=== PATIENT | male | born 1955 | race Asian ===

== ENCOUNTER 2018-07-09 16:03 | Inpatient (IN) | payer BC, MEDICAID ==
[~2018-07-09] VITALS: Ht 176.5 cm; Wt 83.8 kg
[~2018-07-09 16:03] MED LIST: ARIP2TAB2 PO; BUPR-173 PO; DIVA500T2 PO; LANS15CA60 PO; LANS30CA60 PO; MECL-76 PO; NIFE10CA49 PO
[2018-07-09] MEDS ORDERED: ONDANSETRON ODT 4 MG PO PRN (17:30)
[2018-07-09] MEDS ORDERED: BISACODYL 10 MG SUPP PR PRN (17:30)
[2018-07-09] MEDS ORDERED: POLYETHYLENE GLYCOL 17 GM PACKET PO PRN (17:30)
[2018-07-09] MEDS ORDERED: DOCUSATE 100 MG CAPSULE PO PRN (17:30)
[2018-07-09] MEDS ORDERED: DIVA500T4 PO ×2 (17:37)
[2018-07-09] MEDS ORDERED: TAMS-11 PO (17:37)
[2018-07-09] MEDS ORDERED: PRAM0.5T PO (17:37)
[2018-07-09] MEDS ORDERED: PRAZ2CAP2 PO (17:37)
[2018-07-09] MEDS ORDERED: HYDR25TA11 PO (17:37)
[2018-07-09 19:55] VITALS: BP 151/88
[2018-07-09] MEDS ORDERED: hydrOXyzine 10MG TABLET PO PRN (22:00)
[2018-07-09] MEDS: PRAMIPEXOLE 0.5MG TABLET PO SCH (22:19)
[2018-07-09] MEDS: PRAZOSIN 2 MG CAPSULE PO SCH (22:20)
[2018-07-09] MEDS: DIVALPROEX 500 MG TAB.ER.24H PO SCH (22:20)
[2018-07-10 05:57] LABS: BASOPHILS # (AUTO) 0.04 x10^3/uL (0-0.1); BASOPHILS % (AUTO) 1 % (0-1); EOSINOPHILS # (AUTO) 0.07 x10^3/uL (0-0.4); EOSINOPHILS % (AUTO) 1 % (1-7); LYMPHOCYTES # (AUTO) 1.54 x10^3/uL (1-3.4); LYMPHOCYTES % (AUTO) 27 % (22-44); MD NO; MEAN CORPUSCULAR HEMOGLOBIN 31.8 pg (27.5-34.5); MEAN CORPUSCULAR HGB CONC 33.8 g/dL (33.2-36.2); MEAN CORPUSCULAR VOLUME 94.1 fL (81-97); MEAN PLATELET VOLUME 8.5 fL (7.4-10.4); MONOCYTES # (AUTO) 0.44 x10^3/uL (0.2-0.8); MONOCYTES % (AUTO) 8 % (2-9); NEUTROPHILS # (AUTO) 3.57 x10^3/uL (1.8-6.8); NEUTROPHILS % (AUTO) 63 % (42-75); PLATELET COUNT 252 x10^3/uL (130-400); RED BLOOD COUNT 3.97 x10^6/uL (4.38-5.82); RED CELL DISTRIBUTION WIDTH 14.6 % (9.4-14.8)
[2018-07-10 06:02] LABS: HCT (SEDRATE) 37.3 % (39.2-51.8)
[2018-07-10 06:16] LABS: ALBUMIN 2.9 g/dL (3.4-5.0); ANION GAP 10 mmol/L (5-15); CALCIUM 7.9 mg/dL (8.5-10.1); CHLORIDE 109 mmol/L (98-107)
[2018-07-10 06:43] LABS: ALANINE AMINOTRANSFERASE 13 U/L (12-78); ALKALINE PHOSPHATASE 76 U/L (45-117); BILIRUBIN,TOTAL 0.3 mg/dL (0.2-1.0); CHOL/HDL RATIO 3.3; CHOLESTEROL, TOTAL 117 mg/dL (140-239); CREATININE 1.02 mg/dL (0.7-1.3); HDL CHOL % 30 % (26-37); HDL CHOLESTEROL (DIRECT) 35 mg/dL (40-60); LDL CHOLESTEROL,CALCULATED 68 mg/dL (54-169); LDL/HDL RATIO 1.9 (0.5-3.0); T4 (THYROXINE) 7.8 mcg/dL (4.5-12.1); THYROID STIMULATING HORMONE 0.988 mIU/L (0.358-3.740); TOTAL PROTEIN 6.5 g/dL (6.4-8.2); TRIGLYCERIDES 70 mg/dL (50-200); VLDL CHOLESTEROL 14 mg/dL (0-25)
[2018-07-10 07:30] VITALS: BP 126/82
[2018-07-10] MEDS: TAMSULOSIN 0.4 MG CAP.ER.24H PO SCH (09:14)
[2018-07-10] MEDS: SENNA/DOCUSATE TABLET PO SCH (09:14)
[2018-07-10] MEDS: PRAMIPEXOLE 0.5MG TABLET PO SCH ×2 (09:14→20:13)
[2018-07-10] MEDS: PANTOPROZOLE 40MG TABLET PO SCH (09:14)
[2018-07-10] MEDS: DIVALPROEX 500 MG TAB.ER.24H PO SCH ×2 (09:14→20:13)
[2018-07-10 19:59] VITALS: BP 133/82
[2018-07-10] MEDS: PRAZOSIN 2 MG CAPSULE PO SCH (20:14)
[2018-07-11] MEDS: DIVALPROEX 500 MG TAB.ER.24H PO SCH ×2 (08:28→20:15)
[2018-07-11] MEDS: SENNA/DOCUSATE TABLET PO SCH ×2 (08:28→08:36)
[2018-07-11] MEDS: PANTOPROZOLE 40MG TABLET PO SCH (08:29)
[2018-07-11] MEDS: PRAMIPEXOLE 0.5MG TABLET PO SCH ×2 (08:29→20:15)
[2018-07-11] MEDS: TAMSULOSIN 0.4 MG CAP.ER.24H PO SCH (08:29)
[2018-07-11 08:34] VITALS: BP 128/80
[2018-07-11 19:10] VITALS: BP 131/86
[2018-07-11] MEDS: PRAZOSIN 2 MG CAPSULE PO SCH (20:15)
[2018-07-11] MEDS: QUETIAPINE 25MG TABLET PO PRN (20:19)
[2018-07-12 07:30] VITALS: BP 101/67
[2018-07-12] MEDS: PANTOPROZOLE 40MG TABLET PO SCH (09:13)
[2018-07-12] MEDS: SENNA/DOCUSATE TABLET PO SCH (09:13)
[2018-07-12] MEDS: TAMSULOSIN 0.4 MG CAP.ER.24H PO SCH (09:13)
[2018-07-12] MEDS: PRAMIPEXOLE 0.5MG TABLET PO SCH ×2 (09:13→20:53)
[2018-07-12] MEDS: DIVALPROEX 500 MG TAB.ER.24H PO SCH ×2 (09:13→20:53)
[2018-07-12 19:20] VITALS: BP 135/80
[2018-07-12] MEDS: PRAZOSIN 2 MG CAPSULE PO SCH (20:53)
[2018-07-13 07:10] VITALS: BP 125/85
[2018-07-13] MEDS: DIVALPROEX 500 MG TAB.ER.24H PO SCH ×2 (09:09→21:01)
[2018-07-13] MEDS: PANTOPROZOLE 40MG TABLET PO SCH (09:09)
[2018-07-13] MEDS: TAMSULOSIN 0.4 MG CAP.ER.24H PO SCH (09:10)
[2018-07-13] MEDS: PRAMIPEXOLE 0.5MG TABLET PO SCH ×2 (09:10→21:01)
[2018-07-13] MEDS: SENNA/DOCUSATE TABLET PO SCH (09:12)
[2018-07-13 19:15] VITALS: BP 118/79
[2018-07-13] MEDS: PRAZOSIN 2 MG CAPSULE PO SCH (21:01)
[2018-07-14 07:15] VITALS: BP 131/85
[2018-07-14] MEDS: TAMSULOSIN 0.4 MG CAP.ER.24H PO SCH (08:39)
[2018-07-14] MEDS: DIVALPROEX 500 MG TAB.ER.24H PO SCH ×2 (08:39→20:30)
[2018-07-14] MEDS: PANTOPROZOLE 40MG TABLET PO SCH (08:40)
[2018-07-14] MEDS: PRAMIPEXOLE 0.5MG TABLET PO SCH ×2 (08:40→20:30)
[2018-07-14] MEDS: SENNA/DOCUSATE TABLET PO SCH (08:40)
[2018-07-14 19:26] VITALS: BP 129/88
[2018-07-14] MEDS: PRAZOSIN 2 MG CAPSULE PO SCH (20:30)
[2018-07-15 07:15] VITALS: BP 122/79
[2018-07-15] MEDS: DIVALPROEX 500 MG TAB.ER.24H PO SCH ×2 (08:33→20:33)
[2018-07-15] MEDS: TAMSULOSIN 0.4 MG CAP.ER.24H PO SCH (08:34)
[2018-07-15] MEDS: SENNA/DOCUSATE TABLET PO SCH (08:34)
[2018-07-15] MEDS: PANTOPROZOLE 40MG TABLET PO SCH (08:34)
[2018-07-15] MEDS: PRAMIPEXOLE 0.5MG TABLET PO SCH ×2 (08:34→20:33)
[2018-07-15] MEDS: QUETIAPINE 25MG TABLET PO PRN (20:33)
[2018-07-15] MEDS: PRAZOSIN 2 MG CAPSULE PO SCH (20:34)
[2018-07-16 07:10] VITALS: BP 121/79
[2018-07-16] MEDS: DIVALPROEX 500 MG TAB.ER.24H PO SCH ×2 (08:09→19:55)
[2018-07-16] MEDS: PANTOPROZOLE 40MG TABLET PO SCH (08:09)
[2018-07-16] MEDS: TAMSULOSIN 0.4 MG CAP.ER.24H PO SCH (08:09)
[2018-07-16] MEDS: PRAMIPEXOLE 0.5MG TABLET PO SCH ×2 (08:09→19:55)
[2018-07-16] MEDS: SENNA/DOCUSATE TABLET PO SCH (08:10)
[2018-07-16 19:40] VITALS: BP 121/80
[2018-07-16] MEDS: PRAZOSIN 2 MG CAPSULE PO SCH (19:55)
[2018-07-17 07:39] VITALS: BP 125/79
[2018-07-17] MEDS: SENNA/DOCUSATE TABLET PO SCH (09:09)
[2018-07-17] MEDS: DIVALPROEX 500 MG TAB.ER.24H PO SCH ×2 (09:10→20:21)
[2018-07-17] MEDS: TAMSULOSIN 0.4 MG CAP.ER.24H PO SCH (09:10)
[2018-07-17] MEDS: PANTOPROZOLE 40MG TABLET PO SCH (09:10)
[2018-07-17] MEDS: PRAMIPEXOLE 0.5MG TABLET PO SCH ×2 (09:10→20:22)
[2018-07-17 19:26] VITALS: BP 104/71
[2018-07-17] MEDS: PRAZOSIN 2 MG CAPSULE PO SCH (20:22)
[2018-07-18 08:01] VITALS: BP 114/75
[2018-07-18] MEDS: PRAMIPEXOLE 0.5MG TABLET PO SCH ×2 (08:49→21:14)
[2018-07-18] MEDS: DIVALPROEX 500 MG TAB.ER.24H PO SCH ×2 (08:50→21:00)
[2018-07-18] MEDS: SENNA/DOCUSATE TABLET PO SCH ×2 (08:51→09:00)
[2018-07-18] MEDS: PANTOPROZOLE 40MG TABLET PO SCH (08:51)
[2018-07-18] MEDS: TAMSULOSIN 0.4 MG CAP.ER.24H PO SCH (08:51)
[2018-07-18 19:14] VITALS: BP 130/87
[2018-07-18] MEDS: PRAZOSIN 2 MG CAPSULE PO SCH (21:14)
[2018-07-19 07:15] VITALS: BP 125/81
[2018-07-19] MEDS: PRAMIPEXOLE 0.5MG TABLET PO SCH ×2 (08:34→20:30)
[2018-07-19] MEDS: TAMSULOSIN 0.4 MG CAP.ER.24H PO SCH (08:35)
[2018-07-19] MEDS: DIVALPROEX 500 MG TAB.ER.24H PO SCH ×2 (08:35→20:30)
[2018-07-19] MEDS: PANTOPROZOLE 40MG TABLET PO SCH (08:35)
[2018-07-19] MEDS: SENNA/DOCUSATE TABLET PO SCH (08:59)
[2018-07-19 19:11] VITALS: BP 130/86
[2018-07-19] MEDS: PRAZOSIN 2 MG CAPSULE PO SCH (20:30)
[2018-07-20 07:20] VITALS: BP 110/75
[2018-07-20] MEDS ORDERED: ACETAMINOPHEN 325 MG TABLET ONE (08:41)
[2018-07-20] MEDS: SENNA/DOCUSATE TABLET PO SCH (08:43)
[2018-07-20] MEDS: TAMSULOSIN 0.4 MG CAP.ER.24H PO SCH (08:44)
[2018-07-20] MEDS: PANTOPROZOLE 40MG TABLET PO SCH (08:44)
[2018-07-20] MEDS: PRAMIPEXOLE 0.5MG TABLET PO SCH ×2 (08:44→20:08)
[2018-07-20] MEDS: DIVALPROEX 500 MG TAB.ER.24H PO SCH ×2 (08:44→20:07)
[2018-07-20] MEDS: ACETAMINOPHEN 325 MG TABLET PO PRN (16:54)
[2018-07-20 19:33] VITALS: BP 131/85
[2018-07-20] MEDS: PRAZOSIN 2 MG CAPSULE PO SCH (20:08)
[2018-07-21 07:37] VITALS: BP 126/83
[2018-07-21] MEDS: SENNA/DOCUSATE TABLET PO SCH ×2 (09:00→09:20)
[2018-07-21] MEDS: DIVALPROEX 500 MG TAB.ER.24H PO SCH ×2 (09:19→20:16)
[2018-07-21] MEDS: PRAMIPEXOLE 0.5MG TABLET PO SCH ×2 (09:20→20:17)
[2018-07-21] MEDS: PANTOPROZOLE 40MG TABLET PO SCH (09:20)
[2018-07-21] MEDS: TAMSULOSIN 0.4 MG CAP.ER.24H PO SCH (09:20)
[2018-07-21 19:23] VITALS: BP 118/81
[2018-07-21] MEDS: PRAZOSIN 2 MG CAPSULE PO SCH (20:17)
[2018-07-22 07:30] VITALS: BP 123/79
[2018-07-22] MEDS: ACETAMINOPHEN 325 MG TABLET PO PRN (07:58)
[2018-07-22] MEDS: SENNA/DOCUSATE TABLET PO SCH ×2 (08:30→09:03)
[2018-07-22] MEDS: PRAMIPEXOLE 0.5MG TABLET PO SCH (09:02)
[2018-07-22] MEDS: PANTOPROZOLE 40MG TABLET PO SCH (09:03)
[2018-07-22] MEDS: TAMSULOSIN 0.4 MG CAP.ER.24H PO SCH (09:03)
[2018-07-22] MEDS: DIVALPROEX 500 MG TAB.ER.24H PO SCH (09:03)
[2018-07-22] MEDS ORDERED: TAMS-11 PO (14:24)
[2018-07-22] MEDS ORDERED: PANT40TA5 PO (14:24)
[2018-07-22] MEDS ORDERED: HYDR10TA4 PO (14:24)
[2018-07-22] MEDS ORDERED: DIVA500T4 PO ×2 (14:24)
[2018-07-22] MEDS ORDERED: NUPLAZID PO (14:24)
[2018-07-22] MEDS ORDERED: PRAM0.5T5 PO (14:24)
[2018-07-22] MEDS ORDERED: PRAZ2CAP2 PO (14:24)
== END 2018-07-22 11:00 | disposition home or self-care (01) | DRG 885 ==
LOC: 3E 19:50
PROVIDERS: ADMIT Psychiatry & Neurology Psychosomatic Medicine; ATTEND Psychiatry & Neurology Psychosomatic Medicine
DX: F31.64 Bipolar disorder, current episode mixed, severe, with psychotic features (principal); N39.0 Urinary tract infection, site not specified; E16.2 Hypoglycemia, unspecified; G20 Parkinson's disease; G40.909 Epilepsy, unspecified, not intractable, without status epilepticus; K21.9 Gastro-esophageal reflux disease without esophagitis; I10 Essential (primary) hypertension; F41.9 Anxiety disorder, unspecified; K22.0 Achalasia of cardia; D64.9 Anemia, unspecified; Z79.899 Other long term (current) drug therapy; Z88.6 Allergy status to analgesic agent; Z88.1 Allergy status to other antibiotic agents; Z88.5 Allergy status to narcotic agent; Z87.891 Personal history of nicotine dependence; Z81.8 Family history of other mental and behavioral disorders
CPT/HCPCS: 36415; 71045; 80053; 80061; 82140; 82607; 84436; 84443; 85025; 85651; 86592; 93005; 92523-GN; Q0177

== ENCOUNTER 2018-08-09 16:35 | Emergency (ER) | payer MEDICAID ==
[~2018-08-09] VITALS: Ht 175.3 cm; Wt 85.0 kg
[~2018-08-09 16:35] MED LIST changes: +DIVA500T4 PO; +HYDR10TA4 PO; +HYDR25TA11 PO; +NUPLAZID PO; +PANT40TA5 PO; +PRAM0.5T PO; +PRAM0.5T5 PO; +PRAZ2CAP2 PO; +TAMS-11 PO
[2018-08-09 17:41] LABS: ALANINE AMINOTRANSFERASE 43 U/L (12-78); ALBUMIN 3.3 g/dL (3.4-5.0); ANION GAP 8 mmol/L (5-15); CALCIUM 8.6 mg/dL (8.5-10.1); CHLORIDE 111 mmol/L (98-107); CREATININE 1.22 mg/dL (0.7-1.3)
[2018-08-09 17:42] LABS: SALICYLATE LEVEL < 1.7 mg/dL (2.8-20.0)
[2018-08-09 17:43] LABS: ALKALINE PHOSPHATASE 83 U/L (45-117); BASOPHILS # (AUTO) 0.02 x10^3/uL (0-0.1); BASOPHILS % (AUTO) 1 % (0-1); BILIRUBIN,TOTAL 0.5 mg/dL (0.2-1.0); EOSINOPHILS # (AUTO) 0.17 x10^3/uL (0-0.4); EOSINOPHILS % (AUTO) 4 % (1-7); LYMPHOCYTES % (AUTO) 24 % (22-44); MD NO; MEAN CORPUSCULAR HEMOGLOBIN 31.8 pg (27.5-34.5); MEAN CORPUSCULAR HGB CONC 33.5 g/dL (33.2-36.2); MEAN CORPUSCULAR VOLUME 94.9 fL (81-97); MEAN PLATELET VOLUME 9.4 fL (7.4-10.4); MONOCYTES # (AUTO) 0.38 x10^3/uL (0.2-0.8); MONOCYTES % (AUTO) 8 % (2-9); NEUTROPHILS # (AUTO) 3.02 x10^3/uL (1.8-6.8); NEUTROPHILS % (AUTO) 64 % (42-75); PLATELET COUNT 162 x10^3/uL (130-400); RED BLOOD COUNT 4.08 x10^6/uL (4.38-5.82); RED CELL DISTRIBUTION WIDTH 15.5 % (9.4-14.8); TOTAL PROTEIN 6.8 g/dL (6.4-8.2)
[2018-08-09 17:44] LABS: ACETAMINOPHEN < 2 mcg/mL (10-30)
--- NOTE | 2018-08-09 17:44 | NUR ---
PT CURRENTLY LIVING WITH A FRIEND PSYCOLOGIST FRIEND REPORTS PT BECOMING WEAK CONFUSED AND FORGETFULL AND SHE CAN NO LONGER FEEL SAFE WITH HIM IN THE HOUSE HE HAS HAD A FALL AND IS ALSO LEAVING BURNERS ON AT THE HOUSE AND COOKING FOOD FOR OTHERS IN THE HOUSE THAT THEY DID NOT ASK FOR PT REPORTS HE DOES FEEL CONFUSED AND IS FOGGY IN THE HEAD
--- NOTE | 2018-08-09 17:59 | NUR ---
Recieved report from TAURUS Garcia. All questions answered.
--- NOTE | 2018-08-09 17:59 | NUR ---
PT PLACED ON A HOLD PER ERP YUMIKO WAITING ON SOC
--- NOTE | 2018-08-09 18:25 | NUR ---
PT MOVED TO ROOM 40 ROOM SECURED AND BELONGINGS TAKEN AND PLACED IN LOCKER 2 BAGS SITTER IN THE [place] WATCHING THE PT REPORT GIVEN TO LYLE
--- NOTE | 2018-08-09 19:55 | NUR ---
LATE ENTRY 1924- SOC ON TELEPHONE, UPDATED ON PT STATUS, MEDICATION, VS
--- NOTE | 2018-08-09 19:57 | NUR ---
TELEPSYCH CONSULT IN PROCESS
--- NOTE | 2018-08-09 20:39 | NUR ---
LATE ENTRY 1909- PT RESTING ON REINA, FRIEND AT BEDSIDE, ROOM SECURED, DENIES PAIN OR NEEDS, SITTER AT DOORWAY FOR CONTINOUS MONITORING Addendum: 08/09/18 at 2313 by MARY PT'S HOME MEDICATIONS REVIEWED WITH PT AND PT'S ROOMMATE (X ), THEY ARE UNAWARE OF FREQUENCY AND DOSAGES OF MEDICATIONS, PT'S ROOMMATE WILL BRING IN LIST OF HOME MEDICATIONS.
--- NOTE | 2018-08-09 20:40 | NUR ---
PT SITTING AT SIDE OF [facility], URINE SAMPLE SENT, DENIES NEEDS, SITTER AT DOORWAY FOR CONTINOPUS MONITORING
[2018-08-09 20:59] LABS: AMPHETAMINE SCREEN, URINE Negative (Negative); BARBITURATE SCREEN, URINE Negative (Negative); BENZODIAZEPINE SCREEN, URINE Negative (Negative); CANNABINOID SCREEN, URINE Negative (Negative); COCAINE SCREEN, URINE Negative (Negative); METHADONE SCREEN, URINE Negative (Negative); OPIATE SCREEN, URINE Negative (Negative)
[2018-08-09] MEDS ORDERED: TEMAZEPAM 15 MG CAPSULE PO PRN (21:00)
[2018-08-09] MEDS ORDERED: DOCUSATE 100 MG CAPSULE PO PRN (21:00)
[2018-08-09] MEDS ORDERED: ONDANSETRON ODT 4 MG PO PRN (21:00)
[2018-08-09] MEDS ORDERED: LIDODERM 5% PATCH TD PRN (21:00)
[2018-08-09] MEDS ORDERED: ACETAMINOPHEN 325 MG TABLET PO PRN (21:00)
[2018-08-09 21:12] LABS: MICROSCOPIC NOT IND
--- NOTE | 2018-08-09 21:14 | NUR ---
PT RESTING ON GURNEY WATCHING TV, NAD, DENIES NEEDS, SITTER AT DOORWAY FOR CONTINOUS MONITORING
--- NOTE | 2018-08-09 21:28 | NUR ---
tp: packet faxed to all psych facilities.
--- NOTE | 2018-08-09 21:54 | NUR ---
PT RESTING ON GURNEY WATCHING TV, NAD, DENIES NEEDS, SITTER AT DOORWAY FOR CONTINOUS MONITORING
[2018-08-09] MEDS ORDERED: ACETAMINOPHEN 325 MG TABLET ONE (22:28)
--- NOTE | 2018-08-09 22:30 | NUR ---
PT SITTING UP ON SIDE OF GURNEY, REQUESTING TYLENOL FOR NECK DISCOMFORT, PT MEDICATED PER PRN MAR ORDER, DENIES FURTHER NEEDS
--- NOTE | 2018-08-09 23:01 | NUR ---
PT SIITING UP AT BEDSIDE, DENIES PAIN OR NEEDS, SITTER AT DOORWAY FOR CONTINOUS MONITORING.
[2018-08-09] MEDS ORDERED: QUET25TA5 PO (23:11)
[2018-08-09] MEDS ORDERED: ESOM20CA PO (23:11)
--- NOTE | 2018-08-10 00:24 | NUR ---
TASK RN: PT SITTING UP IN [place], AWAKE/ALERT. NAD NOTED. ROOM SECURE, SITTER AT DOORWAY
--- NOTE | 2018-08-10 00:54 | NUR ---
PT RESTING IN BED WATCHING TV, NAD, DENIES NEEDS AT THIS TIME, SITTER AT DOORWAY FOR CONTINOUS MONITORING
--- NOTE | 2018-08-10 02:12 | NUR ---
PT RESTING IN BED WATCHING TV, DENIES NEEDS AT THIS TIME, HYACINTH, SITTER AT DOORWAY FOR CONTINOUS MONITORING
--- NOTE | 2018-08-10 02:55 | NUR ---
SITTER ASSISTED PT UP TO RR, STEADY GAIT NOTED
--- NOTE | 2018-08-10 04:10 | NUR ---
PT RESTING IN BED WITH EYES CLOSED, NAD, EQUAL CHEST RISE/FALL OBSERVED, SITTER AT DOORWAY FOR CONTINOUS MONITORING
--- NOTE | 2018-08-10 05:03 | NUR ---
PT RESTING ON GURNEY WITH EYES CLOSED, REPOSITIONED SELF IN BED, NADN, EQUAL CHEST RISE/FALL OBSERVED, SITTER AT DOORWAY FOR CONTINOUS MONITORING
--- NOTE | 2018-08-10 06:01 | NUR ---
PT RESTING IN BED WATCHING TV, DENIES NEEDS AT THIS TIME, HYACINTH, SITTER AT DOORWAY FOR CONTINOUS MONITORING
--- NOTE | 2018-08-10 07:06 | NUR ---
REPORT GIVEN TO TAURUS FINE
--- NOTE | 2018-08-10 07:14 | NUR ---
REPORT FROM JACQUELINE CONDON
[2018-08-10 07:37] VITALS: BP 124/80
--- NOTE | 2018-08-10 07:38 | NUR ---
PT STANDING IN ROOM. PT STATES HE IS NOT HAVING AUDITORY HALLUCINATIONS BUT VISUAL AT THIS TIME. "THEY COME AND GO, BUT DON'T SAY ANYTHING." ROOM SECURE SITTER IN HALLWAY
--- NOTE | 2018-08-10 08:46 | NUR ---
PT UP TO RESTROOM WITH SITTER. PT AMBULATES WITH A STEADY GAIT.
--- NOTE | 2018-08-10 09:50 | NUR ---
PT SITTING AT EDGE OF BED. ENTIRE BREAKFAST CONSUMED. NO WANTS OR NEEDS AT THIS TIME.
--- NOTE | 2018-08-10 10:34 | NUR ---
PT SITTING AT EDGE OF BED WATCHING TV. RESPS EVEN AND UNLABORED. PT EXPRESSES NO WANTS OR NEEDS AT THIS TIME.
[2018-08-10] MEDS ORDERED: PRAMIPEXOLE DI HCL 0.5 MG PO SCH (21:00)
[2018-08-10] MEDS ORDERED: TEMPLATE NON-FORMULARY MED. (Divalproex Sodium** (Depakote Er**) 500 MG) PO SCH (21:00)
[2018-08-11] MEDS ORDERED: NUPLAZID PO SCH (09:00)
[2018-08-11] MEDS ORDERED: BUPROPION HCL 100 MG PO SCH (09:00)
[2018-08-11] MEDS ORDERED: TAMSULOSIN 0.4 MG CAP.ER.24H PO SCH (09:00)
[2018-08-11] MEDS ORDERED: PRAZOSIN HCL 2 MG PO SCH (09:00)
[2018-08-11] MEDS ORDERED: TEMPLATE NON-FORMULARY MED. (Divalproex Sodium** (Depakote Er**) 1,000 MG) PO SCH (09:00)
== END 2018-08-10 12:43 ==
LOC: ED 17:28 → EDIP 20:39 → UNDOADMOB 20:39 → ED 08-10 12:43
DX: F23 Brief psychotic disorder (principal); F41.1 Generalized anxiety disorder; F31.9 Bipolar disorder, unspecified; K21.9 Gastro-esophageal reflux disease without esophagitis; W01.0XXA Fall on same level from slipping, tripping and stumbling without subsequent striking against object, initial encounter; Y93.01 Activity, walking, marching and hiking; Y92.89 Other specified places as the place of occurrence of the external cause; Y99.8 Other external cause status
CPT/HCPCS: 36415; 80053; 80307; 80329; 81003; 85025; 99285; G0480

== ENCOUNTER 2018-08-10 12:15 | Inpatient (IN) | payer MEDICAID ==
[~2018-08-10] VITALS: Ht 175.3 cm; Wt 83.5 kg
[~2018-08-10 12:15] MED LIST changes: +ESOM20CA PO; +QUET25TA5 PO
[2018-08-10 12:59] VITALS: BP 137/90
[2018-08-10] MEDS ORDERED: PLEASE ENTER HEIGHT AND WEIGHT MC SCH (13:00)
[2018-08-10] MEDS ORDERED: DOCUSATE 100 MG CAPSULE PO PRN (13:00)
[2018-08-10] MEDS ORDERED: BISACODYL 10 MG SUPP PR PRN (13:00)
[2018-08-10] MEDS ORDERED: POLYETHYLENE GLYCOL 17 GM PACKET PO PRN (13:00)
[2018-08-10] MEDS ORDERED: ONDANSETRON ODT 4 MG PO PRN (13:00)
[2018-08-10 13:35] VITALS: BP 136/90
[2018-08-10] MEDS ORDERED: NUPLAZID MC SCH (14:30)
[2018-08-10 19:33] VITALS: BP 127/84
[2018-08-10] MEDS: PRAMIPEXOLE 0.5MG TABLET PO SCH (20:18)
[2018-08-10] MEDS ORDERED: DIVALPROEX 500 MG TAB.ER.24H PO SCH (21:00)
[2018-08-11] MEDS: OMEPRAZOLE 20 MG CAPSULE.DR PO SCH (05:48)
[2018-08-11 07:45] VITALS: BP 138/83
[2018-08-11] MEDS: BUPROPION SR 100 MG TABLET PO SCH (08:01)
[2018-08-11] MEDS: PRAMIPEXOLE 0.5MG TABLET PO SCH ×2 (08:01→20:18)
[2018-08-11] MEDS: PRAZOSIN 2 MG CAPSULE PO SCH (08:01)
[2018-08-11] MEDS: TAMSULOSIN 0.4 MG CAP.ER.24H PO SCH ×2 (08:01→08:07)
[2018-08-11] MEDS: SENNA/DOCUSATE TABLET PO SCH (08:18)
[2018-08-11] MEDS ORDERED: DIVALPROEX 500 MG TAB.ER.24H PO SCH (09:00)
[2018-08-11] MEDS ORDERED: QUETIAPINE 25MG TABLET PO SCH (09:00)
[2018-08-11 19:51] VITALS: BP 121/80
[2018-08-11] MEDS: DIVALPROEX 500 MG TAB.ER.24H PO SCH (20:18)
[2018-08-11] MEDS: QUETIAPINE 100MG TABLET PO SCH (20:18)
[2018-08-12 07:57] VITALS: BP 127/84
[2018-08-12] MEDS: OMEPRAZOLE 20 MG CAPSULE.DR PO SCH (08:00)
[2018-08-12] MEDS: DIVALPROEX 500 MG TAB.ER.24H PO SCH ×2 (08:37→20:13)
[2018-08-12] MEDS: PRAMIPEXOLE 0.5MG TABLET PO SCH ×2 (08:38→20:12)
[2018-08-12] MEDS: BUPROPION SR 100 MG TABLET PO SCH (08:38)
[2018-08-12] MEDS: TAMSULOSIN 0.4 MG CAP.ER.24H PO SCH (08:38)
[2018-08-12] MEDS: SENNA/DOCUSATE TABLET PO SCH (08:38)
[2018-08-12] MEDS: PRAZOSIN 2 MG CAPSULE PO SCH (08:38)
[2018-08-12 19:18] VITALS: BP 109/73
[2018-08-12] MEDS: QUETIAPINE 100MG TABLET PO SCH (20:12)
[2018-08-13] MEDS: OMEPRAZOLE 20 MG CAPSULE.DR PO SCH (07:48)
[2018-08-13] MEDS: ACETAMINOPHEN 325 MG TABLET PO PRN (07:52)
[2018-08-13 07:53] VITALS: BP 113/76
[2018-08-13] MEDS: PRAZOSIN 2 MG CAPSULE PO SCH ×2 (08:31→21:19)
[2018-08-13] MEDS: DIVALPROEX 500 MG TAB.ER.24H PO SCH ×2 (08:31→21:18)
[2018-08-13] MEDS: PRAMIPEXOLE 0.5MG TABLET PO SCH ×2 (08:31→21:17)
[2018-08-13] MEDS: TAMSULOSIN 0.4 MG CAP.ER.24H PO SCH (08:31)
[2018-08-13] MEDS: BUPROPION SR 100 MG TABLET PO SCH (08:31)
[2018-08-13] MEDS: SENNA/DOCUSATE TABLET PO SCH (08:32)
[2018-08-13 19:30] VITALS: BP 123/81
[2018-08-13] MEDS: QUETIAPINE 100MG TABLET PO SCH (21:17)
[2018-08-14] MEDS: ACETAMINOPHEN 325 MG TABLET PO PRN (04:21)
[2018-08-14] MEDS: OMEPRAZOLE 20 MG CAPSULE.DR PO SCH (06:12)
[2018-08-14 07:52] VITALS: BP 113/77
[2018-08-14] MEDS: DIVALPROEX 500 MG TAB.ER.24H PO SCH ×2 (09:28→20:22)
[2018-08-14] MEDS: PRAMIPEXOLE 0.5MG TABLET PO SCH ×2 (09:28→20:21)
[2018-08-14] MEDS: BUPROPION SR 100 MG TABLET PO SCH (09:28)
[2018-08-14] MEDS ORDERED: PRAM0.5T5 PO (18:01)
[2018-08-14] MEDS ORDERED: OMEP-110 PO (18:01)
[2018-08-14] MEDS ORDERED: QUET100T PO (18:01)
[2018-08-14] MEDS ORDERED: BUPR-173 PO (18:01)
[2018-08-14] MEDS ORDERED: DIVA125C2 PO ×2 (18:01)
[2018-08-14] MEDS ORDERED: PRAZ2CAP2 PO (18:01)
[2018-08-14 19:43] VITALS: BP 129/86
[2018-08-14] MEDS: PRAZOSIN 2 MG CAPSULE PO SCH (20:21)
[2018-08-14] MEDS: QUETIAPINE 100MG TABLET PO SCH (20:22)
[2018-08-14] MEDS ORDERED: DIVALPROEX 125 MG CAP.SPRINK PO SCH (21:00)
[2018-08-15] MEDS: ACETAMINOPHEN 325 MG TABLET PO PRN (02:45)
[2018-08-15 08:00] VITALS: BP 109/74
[2018-08-15] MEDS: OMEPRAZOLE 20 MG CAPSULE.DR PO SCH (08:50)
[2018-08-15] MEDS: BUPROPION SR 100 MG TABLET PO SCH (08:50)
[2018-08-15] MEDS: PRAMIPEXOLE 0.5MG TABLET PO SCH (08:50)
[2018-08-15] MEDS ORDERED: DIVALPROEX 125 MG CAP.SPRINK PO SCH (09:00)
== END 2018-08-15 14:00 | disposition home or self-care (01) | DRG 885 ==
LOC: 3E 12:37
PROVIDERS: ADMIT Psychiatry & Neurology Psychosomatic Medicine; ATTEND Psychiatry & Neurology Psychosomatic Medicine
DX: F31.64 Bipolar disorder, current episode mixed, severe, with psychotic features (principal); F41.9 Anxiety disorder, unspecified; G20 Parkinson's disease; G40.909 Epilepsy, unspecified, not intractable, without status epilepticus; I10 Essential (primary) hypertension; K21.9 Gastro-esophageal reflux disease without esophagitis; K22.0 Achalasia of cardia; N40.0 Benign prostatic hyperplasia without lower urinary tract symptoms; Z81.8 Family history of other mental and behavioral disorders; Z88.6 Allergy status to analgesic agent; Z88.5 Allergy status to narcotic agent; Z88.8 Allergy status to other drugs, medicaments and biological substances
CPT/HCPCS: 92523-GN

== ENCOUNTER 2020-09-30 17:44 | Emergency (ER) | payer MEDICAID ==
[~2020-09-30] VITALS: Ht 175.3 cm; Wt 76.7 kg
[~2020-09-30 17:44] MED LIST changes: +DIVA125C2 PO; +HYDR-2995 PO; +HYDR-826 PO; -HYDR10TA4 PO; -HYDR25TA11 PO; +OMEP-110 PO; -PANT40TA5 PO; +PANT40TA6 PO; +QUET100T PO
--- NOTE | 2020-09-30 18:22 | NUR ---
APPLICATOR SPRAYER: PT TO ROOM FROM [facility].
--- NOTE | 2020-09-30 18:23 | NUR ---
WELLNESS NURSE RN BEDSIDE. WILL COMPLETE ASSESSMENT AFTER WELLNESS NURSE RN EVALUATION.
--- NOTE | 2020-09-30 19:01 | NUR ---
MONSTER PLACED PT ON 1999. ROOM SECURED ROLL DOWN DOORS SECURE. PT BELONGINGS LOCKED IN LOCKERS Addendum: 09/30/20 at 2140 by ERIC 2 bags
[2020-09-30 19:19] LABS: ANION GAP 7 mmol/L (5-15); BASOPHILS % (AUTO) 2 % (0-1); CALCIUM 8.8 mg/dL (8.5-10.1); CHLORIDE 110 mmol/L (98-107); CREATININE 1.12 mg/dL (0.7-1.3); EOSINOPHILS % (AUTO) 2 % (1-7); LYMPHOCYTES % (AUTO) 29 % (22-44); MEAN CORPUSCULAR HEMOGLOBIN 31.5 pg (27.5-34.5); MEAN CORPUSCULAR HGB CONC 33.8 g/dL (33.2-36.2); MEAN PLATELET VOLUME 8.6 fL (7.4-10.4); MONOCYTES % (AUTO) 7 % (2-9); NEUTROPHILS % (AUTO) 61 % (42-75); PLATELET COUNT 259 x10^3/uL (130-400); RED BLOOD COUNT 4.83 x10^6/uL (4.38-5.82); RED CELL DISTRIBUTION WIDTH 15.1 % (9.4-14.8); SALICYLATE LEVEL < 1.7 mg/dL (2.8-20.0)
[2020-09-30 19:22] LABS: MD NO
[2020-09-30] MEDS ORDERED: HYDROXYZINE PAMOATE 50MG CAP PO PRN (19:30)
--- NOTE | 2020-09-30 20:00 | NUR ---
pt in bed. ua sent to lab
[2020-09-30 20:07] LABS: AMPHETAMINE SCREEN, URINE Negative (Negative); BARBITURATE SCREEN, URINE Negative (Negative); BENZODIAZEPINE SCREEN, URINE Negative (Negative); CANNABINOID SCREEN, URINE Negative (Negative); COCAINE SCREEN, URINE Negative (Negative); METHADONE SCREEN, URINE Negative (Negative); OPIATE SCREEN, URINE Negative (Negative)
--- NOTE | 2020-09-30 20:49 | NUR ---
pt in bed sitter in reveles
--- NOTE | 2020-09-30 21:31 | NUR ---
pt resting in bed.
--- NOTE | 2020-09-30 21:51 | NUR ---
ad sent to lab.
--- NOTE | 2020-09-30 22:08 | NUR ---
ASSUMED CARE OF PT FROM TAURUS ULRICH. PT RESTING IN [facility], MONITORING IN PLACE, HYACINTH AT THIS TIME, PHIL.
--- NOTE | 2020-09-30 23:00 | NUR ---
THROUGHPUT RN: PT REPORTS HE HAD COVID A FEW MONTHS PRIOR. SPOKE TO IKER HOBBS OF [facility] REGARDING POSITIVE TEST TONIGHT, SHE STATES THEY MAY BE ABLE TO ACCEPT THE PATIENT IF THEY HAVE A PREVIOUSLY POSITIVE TEST. RECORDS REQUESTS SENT
--- NOTE | 2020-10-01 00:27 | NUR ---
PT RESTING IN [facility] WITH EYES CLOSED, SITTER AT DOORWAY OF ROOM, HYACINTH AT THIS TIME, PHIL.
--- NOTE | 2020-10-01 01:43 | NUR ---
THROUGHPUT RN: CALLED [facility], STATES THEY HAVE NOT YET RECEIVED FAX BUT WILL DOUBLE CHECK AND IF ITS THERE THEY WILL SEND RESULTS.
--- NOTE | 2020-10-01 02:13 | NUR ---
BEDSIDE REPORT FROM CINDY CONDON, PT CARE TRANSFERRED AT THIS TIME. PT NAD, RESTING ON GURNEY, EYES CLOSED, EVEN AND UNLABORED RESPIRATIONS. ROOM SECURED, SI PRECAUTIONS IN PLACE, WCTM. SPOKE TO IKER CONDON [facility] ON [facility], STATES THEY WILL CONTACT CT WITH INFECTION CONTROL PRIOR TO ACCEPTING PT.
--- NOTE | 2020-10-01 03:08 | NUR ---
pt resting on [place], nad, no change in condition, room secured, sitter in line of sight, wctm. L2K
[2020-10-01 03:44] VITALS: BP 142/94
[2020-10-01] MEDS ORDERED: ATORVASTATIN PO (03:48)
[2020-10-01] MEDS ORDERED: ESOM40CA PO (03:48)
[2020-10-01] MEDS ORDERED: BUPR-86 PO (03:48)
[2020-10-01] MEDS ORDERED: LIPITOR PO (03:48)
[2020-10-01] MEDS ORDERED: CARV6.252 PO (04:18)
--- NOTE | 2020-10-01 04:19 | NUR ---
PT TRANSFERRED TO FLOOR WITH BELONGINGS. NAD, NO PERSONAL BELONGINGS LEFT IN CHART OR LOCKER.
== END 2020-10-01 04:20 | disposition other institution (70) ==
LOC: ED 19:58
DX: U07.1 COVID-19 (principal); R45.851 Suicidal ideations; F32.9 Major depressive disorder, single episode, unspecified; K21.9 Gastro-esophageal reflux disease without esophagitis; Z90.89 Acquired absence of other organs; Z87.891 Personal history of nicotine dependence
CPT/HCPCS: 36415; 80048; 80299; 80307; 80320; 80329; 82040; 85025; 87635; 99285; G0480

== ENCOUNTER 2020-09-30 22:07 | Inpatient (IN) | payer MEDICAID ==
[~2020-09-30] VITALS: Ht 175.3 cm; Wt 73.2 kg
[2020-09-30] MEDS ORDERED: POLYETHYLENE GLYCOL 17 GM PACKET PO PRN (22:30)
[2020-09-30] MEDS ORDERED: ACETAMINOPHEN 325 MG TABLET PO PRN (22:30)
[2020-09-30] MEDS ORDERED: BISACODYL 10 MG SUPP PR PRN (22:30)
[2020-09-30] MEDS ORDERED: DIVALPROEX 500 MG TAB.ER.24H PO SCH (22:30)
[2020-09-30] MEDS ORDERED: DOCUSATE 100 MG CAPSULE PO PRN (22:30)
[2020-09-30] MEDS ORDERED: ONDANSETRON ODT 4 MG PO PRN (22:30)
[2020-10-01] MEDS ORDERED: ESOM40CA PO (03:48)
[2020-10-01] MEDS ORDERED: LIPITOR PO (03:48)
[2020-10-01] MEDS ORDERED: BUPR-86 PO (03:48)
[2020-10-01] MEDS ORDERED: ATORVASTATIN PO (03:48)
[2020-10-01] MEDS ORDERED: CARV6.252 PO (04:18)
[2020-10-01] MEDS ORDERED: PLEASE ENTER HEIGHT AND WEIGHT MC SCH (05:00)
[2020-10-01 05:04] VITALS: BP 138/87
[2020-10-01 05:38] LABS: MICROSCOPIC NOT IND
[2020-10-01 06:28] LABS: MICROSCOPIC NOT IND
[2020-10-01 08:08] VITALS: BP 127/82
[2020-10-01 08:23] LABS: ALBUMIN 4.1 g/dL (3.4-5.0)
[2020-10-01 08:49] LABS: BILIRUBIN, DIRECT 0.3 mg/dL (0.1-0.2); BILIRUBIN,INDIRECT 0.8 mg/dL (0.0-2.0); BILIRUBIN,TOTAL 1.1 mg/dL (0.2-1.0); CHOL/HDL RATIO 2.8; FREE T4 (FREE THYROXINE) 1.4 ng/dL (0.76-1.46); LDL/HDL RATIO 1.4 (0.5-3.0); TOTAL PROTEIN 7.8 g/dL (6.4-8.2)
[2020-10-01] MEDS ORDERED: POTASSIUM CHLORIDE 20 MEQ TAB.ER.PRT PO ONE (10:00)
[2020-10-01 10:02] LABS: BASOPHILS % (AUTO) 1 % (0-1); EOSINOPHILS % (AUTO) 3 % (1-7); LYMPHOCYTES % (AUTO) 32 % (22-44); MEAN CORPUSCULAR HEMOGLOBIN 31.2 pg (27.5-34.5); MEAN CORPUSCULAR HGB CONC 33.5 g/dL (33.2-36.2); MEAN PLATELET VOLUME 8.7 fL (7.4-10.4); MONOCYTES % (AUTO) 7 % (2-9); NEUTROPHILS % (AUTO) 57 % (42-75); PLATELET COUNT 220 x10^3/uL (130-400); RED BLOOD COUNT 4.64 x10^6/uL (4.38-5.82); RED CELL DISTRIBUTION WIDTH 15.1 % (9.4-14.8)
[2020-10-01 10:12] LABS: MD NO
[2020-10-01 10:13] LABS: ALANINE AMINOTRANSFERASE 13 U/L (12-78); ALBUMIN 3.4 g/dL (3.4-5.0); ANION GAP 5 mmol/L (5-15); CALCIUM 8.9 mg/dL (8.5-10.1); CHLORIDE 112 mmol/L (98-107)
[2020-10-01 10:15] LABS: ALKALINE PHOSPHATASE 99 U/L (45-117); BILIRUBIN,TOTAL 1.2 mg/dL (0.2-1.0); CREATININE 1.02 mg/dL (0.7-1.3); TOTAL PROTEIN 6.9 g/dL (6.4-8.2)
[2020-10-01] MEDS: CARVEDILOL 6.25 MG TABLET PO SCH ×2 (10:30→21:02)
[2020-10-01] MEDS: BUPROPION SR 100 MG TABLET PO SCH (11:37)
[2020-10-01] MEDS ORDERED: OMEPRAZOLE 20 MG CAPSULE.DR ONE (11:45)
[2020-10-01] MEDS: OMEPRAZOLE 20 MG CAPSULE.DR PO SCH (11:46)
[2020-10-01 19:30] VITALS: BP 127/78
[2020-10-01] MEDS: DIVALPROEX 250 MG TAB.ER.24H PO SCH (21:00)
[2020-10-01] MEDS: ATORVASTATIN 40 MG TABLET PO SCH (21:02)
[2020-10-02] MEDS: OMEPRAZOLE 20 MG CAPSULE.DR PO SCH ×2 (06:21→16:03)
[2020-10-02 07:28] VITALS: BP 115/73
[2020-10-02] MEDS: BUPROPION SR 100 MG TABLET PO SCH ×2 (09:08→12:22)
[2020-10-02] MEDS: CARVEDILOL 6.25 MG TABLET PO SCH ×2 (09:09→20:36)
[2020-10-02] MEDS: ARIPIPRAZOLE 2 MG TABLET PO SCH (13:45)
[2020-10-02 19:45] VITALS: BP 109/67
[2020-10-02] MEDS: ATORVASTATIN 40 MG TABLET PO SCH (20:36)
[2020-10-02] MEDS: DIVALPROEX 250 MG TAB.ER.24H PO SCH (20:37)
[2020-10-03] MEDS: OMEPRAZOLE 20 MG CAPSULE.DR PO SCH ×2 (05:22→16:15)
[2020-10-03 07:34] VITALS: BP 126/72
[2020-10-03] MEDS: BUPROPION SR 100 MG TABLET PO SCH ×2 (08:31→13:00)
[2020-10-03] MEDS: CARVEDILOL 6.25 MG TABLET PO SCH ×2 (08:31→20:25)
[2020-10-03] MEDS: ARIPIPRAZOLE 2 MG TABLET PO SCH (08:31)
[2020-10-03 20:08] VITALS: BP 118/79
[2020-10-03] MEDS: DIVALPROEX 250 MG TAB.ER.24H PO SCH (20:25)
[2020-10-03] MEDS: ATORVASTATIN 40 MG TABLET PO SCH (20:25)
[2020-10-04] MEDS: OMEPRAZOLE 20 MG CAPSULE.DR PO SCH ×2 (06:00→16:35)
[2020-10-04 07:43] VITALS: BP 128/80
[2020-10-04] MEDS: ARIPIPRAZOLE 2 MG TABLET PO SCH (08:57)
[2020-10-04] MEDS: BUPROPION SR 100 MG TABLET PO SCH ×2 (08:57→12:55)
[2020-10-04] MEDS: CARVEDILOL 6.25 MG TABLET PO SCH ×2 (08:57→20:50)
[2020-10-04 19:29] VITALS: BP 122/81
[2020-10-04] MEDS: DIVALPROEX 250 MG TAB.ER.24H PO SCH (20:49)
[2020-10-04] MEDS: ATORVASTATIN 40 MG TABLET PO SCH (20:50)
[2020-10-05] MEDS: OMEPRAZOLE 20 MG CAPSULE.DR PO SCH (06:02)
[2020-10-05 06:29] VITALS: BP 122/77
[2020-10-05] MEDS ORDERED: BUPR-173 PO (08:56)
[2020-10-05] MEDS ORDERED: CARV6.2512 PO (08:56)
[2020-10-05] MEDS ORDERED: DIVA250T PO (08:56)
[2020-10-05] MEDS ORDERED: ARIP2TAB2 PO (08:56)
[2020-10-05] MEDS ORDERED: ATOR40TA78 PO (08:56)
[2020-10-05] MEDS ORDERED: OMEP-110 PO (08:56)
[2020-10-05] MEDS: ARIPIPRAZOLE 2 MG TABLET PO SCH (09:05)
[2020-10-05] MEDS: CARVEDILOL 6.25 MG TABLET PO SCH (09:05)
[2020-10-05] MEDS: BUPROPION SR 100 MG TABLET PO SCH (09:05)
== END 2020-10-05 12:25 | disposition home or self-care (01) | DRG 753 ==
LOC: 3E 10-01 04:28
PROVIDERS: ADMIT Psychiatry & Neurology Psychosomatic Medicine; ATTEND Psychiatry & Neurology Psychosomatic Medicine
DX: F31.60 Bipolar disorder, current episode mixed, unspecified (principal); E78.5 Hyperlipidemia, unspecified; G20 Parkinson's disease; I10 Essential (primary) hypertension; K31.84 Gastroparesis; K22.0 Achalasia of cardia; N40.0 Benign prostatic hyperplasia without lower urinary tract symptoms; Z79.899 Other long term (current) drug therapy; Z88.6 Allergy status to analgesic agent; Z88.1 Allergy status to other antibiotic agents; R73.9 Hyperglycemia, unspecified; E87.6 Hypokalemia; R45.851 Suicidal ideations; Z81.8 Family history of other mental and behavioral disorders; F17.210 Nicotine dependence, cigarettes, uncomplicated; Z20.822 Contact with and (suspected) exposure to COVID-19
CPT/HCPCS: 36415; 71045; 80048; 80053; 80061; 80076; 80299; 80307; 80320; 80329; 81003; 82040; 82607; 83036; 83615; 83735; 84439; 84443; 85025; 85379; 87635; 93005; 99285; G0480

== ENCOUNTER 2020-10-20 12:35 | Emergency (ER) | payer MEDICAID ==
[~2020-10-20] VITALS: Ht 175.3 cm; Wt 76.2 kg
[~2020-10-20 12:35] MED LIST changes: +ATOR40TA78 PO; +ATORVASTATIN PO; +BUPR-86 PO; +CARV6.2512 PO; +CARV6.252 PO; +DIVA250T PO; +ESOM40CA PO; +LIPITOR PO
[2020-10-20 13:26] LABS: BASOPHILS % (AUTO) 1 % (0-1); EOSINOPHILS % (AUTO) 2 % (1-7); LYMPHOCYTES % (AUTO) 25 % (22-44); MEAN CORPUSCULAR HEMOGLOBIN 31.4 pg (27.5-34.5); MEAN CORPUSCULAR HGB CONC 33.7 g/dL (33.2-36.2); MEAN PLATELET VOLUME 8.1 fL (7.4-10.4); MONOCYTES % (AUTO) 6 % (2-9); NEUTROPHILS % (AUTO) 67 % (42-75); PLATELET COUNT 265 x10^3/uL (130-400); RED BLOOD COUNT 4.93 x10^6/uL (4.38-5.82); RED CELL DISTRIBUTION WIDTH 15.2 % (9.4-14.8)
[2020-10-20 13:32] LABS: MD NO
--- NOTE | 2020-10-20 13:35 | NUR ---
PT IN SECURE ROOM. STATES HE IS HAVING SUICIDAL THOUGHTS, OUT OF BIPOLAR MEDS. SAYS HE IS GOING TO GO TO THE [place] AND JUMP IN THE SWIMMING HOLE. PT CLOTHES AND BELONGINGS IN GOWN, TO BE SEEN BY MONSTER
[2020-10-20 13:36] LABS: ANION GAP 5 mmol/L (5-15); CALCIUM 9.3 mg/dL (8.5-10.1); CHLORIDE 110 mmol/L (98-107); CREATININE 1.01 mg/dL (0.7-1.3)
[2020-10-20 13:37] LABS: SALICYLATE LEVEL < 1.7 mg/dL (2.8-20.0)
--- NOTE | 2020-10-20 14:01 | NUR ---
BREAK RN: BELONGINGS LOCKED UP (2 BAGS). PT RESTING IN ROOM. NO ACUTE DISTRESS NOTED. SITTER AT DOOR. WILL CONTINUE TO MONITOR WHILE PRIMARY RN IS ON BREAK.
--- NOTE | 2020-10-20 14:19 | NUR ---
BREAK RN: REPORT GIVEN TO TAURUS NEWBERRY
--- NOTE | 2020-10-20 14:57 | NUR ---
PT RESTING, SITTER PRESENT
--- NOTE | 2020-10-20 15:14 | NUR ---
ATHLETIC GEAR CUSTODIAN AT BEDSIDE.
[2020-10-20] MEDS ORDERED: BUPROPION 100 MG TABLET PO ONE (15:30)
[2020-10-20] MEDS ORDERED: ARIPIPRAZOLE 2 MG TABLET PO SCH (15:30)
--- NOTE | 2020-10-20 15:57 | NUR ---
MEDICATED PER ORDERS. PT RESTING, DRINKING WATER. SITTER PRESENT
--- NOTE | 2020-10-20 17:01 | NUR ---
PT AMBULATED TO BATHROOM. SITTER PRESENT. MEAL TRAY TO BE ORDERED FOR DINNER. HOSPITAL BED TO BE ORDERED FOR COMFORT
[2020-10-20 17:15] LABS: MICROSCOPIC INDICATED
[2020-10-20 17:21] LABS: AMPHETAMINE SCREEN, URINE Negative (Negative); BARBITURATE SCREEN, URINE Negative (Negative); BENZODIAZEPINE SCREEN, URINE Negative (Negative); CANNABINOID SCREEN, URINE Negative (Negative); COCAINE SCREEN, URINE Negative (Negative); METHADONE SCREEN, URINE Negative (Negative); OPIATE SCREEN, URINE Negative (Negative)
--- NOTE | 2020-10-20 18:06 | NUR ---
covid swab sent to lab
--- NOTE | 2020-10-20 18:49 | NUR ---
REPORT TO AMEYA
[2020-10-20 19:33] VITALS: BP 122/71
--- NOTE | 2020-10-20 19:40 | NUR ---
VS updated and within norms. Pt and belongings tx in wc to U.
[2020-10-20] MEDS ORDERED: DIVALPROEX 250 MG TAB.ER.24H PO SCH (21:00)
== END 2020-10-20 19:53 | disposition other institution (70) ==
LOC: ED 15:33
DX: R45.851 Suicidal ideations (principal); F32.9 Major depressive disorder, single episode, unspecified; Z20.822 Contact with and (suspected) exposure to COVID-19; R94.31 Abnormal electrocardiogram [ECG] [EKG]; G20 Parkinson's disease; K21.9 Gastro-esophageal reflux disease without esophagitis
CPT/HCPCS: 36415; 80048; 80143; 80179; 80307; 80320; 81001; 82040; 85025; 87086; 87426; 93005; 99284; G0480

== ENCOUNTER 2020-10-20 18:24 | Inpatient (IN) | payer MEDICAID ==
[~2020-10-20] VITALS: Ht 175.3 cm; Wt 70.1 kg
[2020-10-20] MEDS ORDERED: BISACODYL 10 MG SUPP PR PRN (19:30)
[2020-10-20] MEDS ORDERED: ONDANSETRON ODT 4 MG PO PRN (19:30)
[2020-10-20] MEDS ORDERED: POLYETHYLENE GLYCOL 17 GM PACKET PO PRN (19:30)
[2020-10-20] MEDS ORDERED: DOCUSATE 100 MG CAPSULE PO PRN (19:30)
[2020-10-20 19:54] VITALS: BP 141/81
[2020-10-20] MEDS ORDERED: PLEASE ENTER HEIGHT AND WEIGHT MC SCH (20:30)
[2020-10-20] MEDS ORDERED: DIVALPROEX 500 MG TAB.ER.24H PO SCH (21:00)
[2020-10-20 21:08] VITALS: BP 141/81
[2020-10-20] MEDS ORDERED: DIVALPROEX 250 MG TAB.ER.24H PO SCH (22:05)
[2020-10-20] MEDS: DIVALPROEX 250 MG TAB.ER.24H PO SCH (22:20)
[2020-10-21 06:58] LABS: ALBUMIN 3.4 g/dL (3.4-5.0); BILIRUBIN, DIRECT 0.4 mg/dL (0.1-0.2)
[2020-10-21 07:24] LABS: BILIRUBIN,INDIRECT 1.3 mg/dL (0.0-2.0); BILIRUBIN,TOTAL 1.7 mg/dL (0.2-1.0); TOTAL PROTEIN 6.8 g/dL (6.4-8.2)
[2020-10-21 07:49] VITALS: BP 108/66
[2020-10-21] MEDS: BUPROPION 100 MG TABLET PO SCH (08:38)
[2020-10-21] MEDS: ARIPIPRAZOLE 2 MG TABLET PO SCH (08:38)
[2020-10-21] MEDS: OMEPRAZOLE 20 MG CAPSULE.DR PO SCH (16:38)
[2020-10-21 19:59] VITALS: BP 115/72
[2020-10-21] MEDS: ATORVASTATIN 40 MG TABLET PO SCH (21:13)
[2020-10-21] MEDS: CARVEDILOL 6.25 MG TABLET PO SCH (21:13)
[2020-10-21] MEDS: DIVALPROEX 250 MG TAB.ER.24H PO SCH (21:14)
[2020-10-22] MEDS: OMEPRAZOLE 20 MG CAPSULE.DR PO SCH ×2 (06:00→16:59)
[2020-10-22] MEDS: ACETAMINOPHEN 325 MG TABLET PO PRN ×2 (06:02→10:03)
[2020-10-22 07:48] VITALS: BP 103/57
[2020-10-22] MEDS: CARVEDILOL 6.25 MG TABLET PO SCH ×2 (08:03→20:02)
[2020-10-22] MEDS: ARIPIPRAZOLE 2 MG TABLET PO SCH (08:03)
[2020-10-22] MEDS: BUPROPION 100 MG TABLET PO SCH (08:03)
[2020-10-22 19:30] VITALS: BP 106/70
[2020-10-22] MEDS: ATORVASTATIN 40 MG TABLET PO SCH (20:02)
[2020-10-22] MEDS: DIVALPROEX 250 MG TAB.ER.24H PO SCH (20:02)
[2020-10-23] MEDS: OMEPRAZOLE 20 MG CAPSULE.DR PO SCH ×2 (05:31→16:10)
[2020-10-23 07:18] VITALS: BP 112/75
[2020-10-23] MEDS: CARVEDILOL 6.25 MG TABLET PO SCH ×2 (08:31→20:49)
[2020-10-23] MEDS: BUPROPION 100 MG TABLET PO SCH (08:31)
[2020-10-23] MEDS: ACETAMINOPHEN 325 MG TABLET PO PRN ×2 (08:32→20:49)
[2020-10-23] MEDS: ARIPIPRAZOLE 5 MG TABLET PO SCH (08:32)
[2020-10-23 19:30] VITALS: BP 117/74
[2020-10-23] MEDS: DIVALPROEX 250 MG TAB.ER.24H PO SCH (20:49)
[2020-10-23] MEDS: ATORVASTATIN 40 MG TABLET PO SCH (20:49)
[2020-10-24] MEDS: OMEPRAZOLE 20 MG CAPSULE.DR PO SCH ×2 (05:02→17:24)
[2020-10-24 07:55] VITALS: BP 124/70
[2020-10-24] MEDS: ACETAMINOPHEN 325 MG TABLET PO PRN (08:31)
[2020-10-24] MEDS: ARIPIPRAZOLE 5 MG TABLET PO SCH (08:31)
[2020-10-24] MEDS: CARVEDILOL 6.25 MG TABLET PO SCH ×2 (08:31→20:22)
[2020-10-24] MEDS: BUPROPION SR 150 MG TABLET PO SCH (08:31)
[2020-10-24 19:18] VITALS: BP 122/79
[2020-10-24] MEDS: DIVALPROEX 250 MG TAB.ER.24H PO SCH (20:22)
[2020-10-24] MEDS: ATORVASTATIN 40 MG TABLET PO SCH (20:22)
[2020-10-25] MEDS: OMEPRAZOLE 20 MG CAPSULE.DR PO SCH (05:59)
[2020-10-25 07:34] VITALS: BP 113/69
[2020-10-25] MEDS: BUPROPION SR 150 MG TABLET PO SCH (08:35)
[2020-10-25] MEDS: ARIPIPRAZOLE 5 MG TABLET PO SCH (08:35)
[2020-10-25] MEDS: CARVEDILOL 6.25 MG TABLET PO SCH (08:36)
[2020-10-25] MEDS ORDERED: CARV6.2512 PO (13:20)
[2020-10-25] MEDS ORDERED: ATOR40TA78 PO (13:20)
[2020-10-25] MEDS ORDERED: ARIP5TAB13 PO (13:20)
[2020-10-25] MEDS ORDERED: DIVA250T PO (13:20)
[2020-10-25] MEDS ORDERED: BUPR150T73 PO (13:20)
[2020-10-25] MEDS ORDERED: OMEP-110 PO (13:20)
== END 2020-10-25 13:35 | disposition home or self-care (01) | DRG 753 ==
LOC: 3E 20:07
PROVIDERS: ADMIT Psychiatry & Neurology Psychosomatic Medicine; ATTEND Psychiatry & Neurology Psychosomatic Medicine
DX: F31.60 Bipolar disorder, current episode mixed, unspecified (principal); K22.0 Achalasia of cardia; I48.91 Unspecified atrial fibrillation; I10 Essential (primary) hypertension; E78.5 Hyperlipidemia, unspecified; K21.9 Gastro-esophageal reflux disease without esophagitis; K31.84 Gastroparesis; F17.210 Nicotine dependence, cigarettes, uncomplicated; F14.20 Cocaine dependence, uncomplicated; N40.0 Benign prostatic hyperplasia without lower urinary tract symptoms; R45.851 Suicidal ideations; Z79.899 Other long term (current) drug therapy; Z59.0 Homelessness; Z56.0 Unemployment, unspecified; Z81.8 Family history of other mental and behavioral disorders
CPT/HCPCS: 36415; 80048; 80076; 80143; 80164; 80179; 80307; 80320; 81001; 82040; 82607; 85025; 87086; 87426; 93005; 99284; G0480

== ENCOUNTER 2021-01-12 10:07 | Emergency (ER) | payer MEDICAID ==
[~2021-01-12] VITALS: Ht 175.3 cm; Wt 77.0 kg
[~2021-01-12 10:07] MED LIST changes: +ARIP5TAB13 PO; +BUPR150T73 PO; +LANS15CA53 PO; -LANS15CA60 PO
[2021-01-12 10:12] VITALS: BP 139/87
== END 2021-01-12 11:02 | disposition home or self-care (01) ==
LOC: ED 10:59
DX: B02.9 Zoster without complications (principal); K21.9 Gastro-esophageal reflux disease without esophagitis; F17.200 Nicotine dependence, unspecified, uncomplicated
CPT/HCPCS: 99283

== ENCOUNTER 2021-01-22 07:55 | Emergency (ER) | payer MEDICAID ==
[~2021-01-22] VITALS: Ht 175.3 cm; Wt 75.5 kg
[~2021-01-22 07:55] MED LIST changes: -QUET100T PO; +QUET100T2 PO
--- NOTE | 2021-01-22 08:08 | NUR ---
PA AT BS
--- NOTE | 2021-01-22 08:25 | NUR ---
PT TO CT
--- NOTE | 2021-01-22 08:38 | NUR ---
PT BACK FROM CT, CONNECTED TO MONITORS. CALL LIGHT WITHIN REACH
[2021-01-22 08:57] LABS: MICROSCOPIC INDICATED
--- NOTE | 2021-01-22 09:02 | NUR ---
PT RESTING ON [place], NADN/VSS. CALL LIGHT WITHIN REACH. BED RAILS UP X2. NO NEEDS AT THIS TIME
[2021-01-22 09:05] LABS: BASOPHILS % (AUTO) 0 % (0-1); EOSINOPHILS % (AUTO) 2 % (1-7); LYMPHOCYTES % (AUTO) 31 % (22-44); MEAN CORPUSCULAR HEMOGLOBIN 31.8 pg (27.5-34.5); MEAN CORPUSCULAR HGB CONC 33.8 g/dL (33.2-36.2); MEAN PLATELET VOLUME 8.6 fL (7.4-10.4); MONOCYTES % (AUTO) 6 % (2-9); NEUTROPHILS % (AUTO) 61 % (42-75); PLATELET COUNT 199 x10^3/uL (130-400); RED BLOOD COUNT 4.48 x10^6/uL (4.38-5.82); RED CELL DISTRIBUTION WIDTH 15.4 % (9.4-14.8)
[2021-01-22 09:14] LABS: ALBUMIN 3.5 g/dL (3.4-5.0); ANION GAP 6 mmol/L (5-15); CALCIUM 8.5 mg/dL (8.5-10.1); CHLORIDE 111 mmol/L (98-107)
[2021-01-22 09:37] VITALS: BP 125/78
--- NOTE | 2021-01-22 09:37 | NUR ---
PT SITTING ON HYACINTH HUANG/VSS. PT DENIES ANY PAIN. CALL LIGHT WITHIN REACH. NO NEEDS AT THIS TIME
--- NOTE | 2021-01-22 10:13 | NUR ---
Patient given discharge instructions and RX, they have confirmed that they understand the instructions. Patient ambulatory with steady gait.
== END 2021-01-22 10:28 | disposition home or self-care (01) ==
LOC: ED 08:16
DX: N20.2 Calculus of kidney with calculus of ureter (principal); R10.9 Unspecified abdominal pain; R31.9 Hematuria, unspecified; K21.9 Gastro-esophageal reflux disease without esophagitis
CPT/HCPCS: 36415; 74176; 80048; 81001; 82040; 85025; 87086; 99284